=== PATIENT | female | born 1985 | race Caucasian/White ===

== ENCOUNTER → 2024-09-15 10:26 | Outpatient (REF) | payer BC, SELFPAY | LOC: RAD 10:26 | PROVIDERS: ATTENDING PHYSICIAN Obstetrics & Gynecology | DX: N92.6 Irregular menstruation, unspecified (principal) | CPT/HCPCS: 76830; 76856 ==

== ENCOUNTER → 2024-09-17 12:27 | Outpatient (REF) | payer BC, SELFPAY | LOC: HWRAD 12:27 | PROVIDERS: ATTENDING PHYSICIAN Obstetrics & Gynecology | DX: N92.6 Irregular menstruation, unspecified (principal) | CPT/HCPCS: 76536 ==